=== PATIENT | female | born 1950 | race Caucasian/White ===

== ENCOUNTER 2017-08-03 22:36 | Emergency (ER) | payer MEDICARE ==
--- NOTE | 2017-08-03 23:08 | EDM.PDOC ---
ED HPI GENERAL MEDICAL PROBLEM - General Chief Complaint: Lower Extremity Injury/Pain Stated Complaint: HIP PAIN VIA NORTH Time Seen by Provider: 08/03/17 23:01 Source of Information: Reports: Patient, RN Notes Reviewed History Limitations: Reports: No Limitations - History of Present Illness INITIAL COMMENTS - FREE TEXT/NARRATIVE: 66-year-old female presents to the emergency department today complaint of right leg pain, she recently had hip replacement 2-1/2 weeks ago was doing well at home doing well with rehabilitation sudden onset of pain that shoots from her hip into her right knee cannot bear weight EMS services were called she received 50 g of fentanyl in route she is pain-free at this time as long as there is no movement - Related Data Allergies Allergy/AdvReac Type Severity Reaction Status Date / Time Penicillins Allergy Rash Verified 03/20/16 06:58 Home Meds: Home Meds Cholestyramine (With Sugar) [Questran Powder] 4 gm PO DAILY 03/18/16 [History] Gabapentin [Neurontin] 300 mg PO QID 03/18/16 [History] Mesalamine [Apriso] 4 cap PO DAILY 03/18/16 [History] Multivitamin [Multiple Vitamins] 1 tab PO DAILY 03/18/16 [History] Phenytoin Sodium Extended [Dilantin] 200 mg PO DAILY 03/18/16 [History] Phenytoin [Dilantin] 50 mg CHEW DAILY 03/18/16 [History] Sodium Chloride [[place]] 0.1 ml DIMITRI ASDIRECTED PRN 03/18/16 [History] Past Medical History HEENT History: Reports: Allergic Rhinitis, Impaired Vision Gastrointestinal History: Reports: Cholelithiasis, Other (See Below) Other Gastrointestinal History: ulcerative colitis Genitourinary History: Reports: UTI, Recurrent 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: , 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 Neurological History: Reports: Seizure - Infectious Disease History Infectious Disease History: Reports: Chicken Pox, Measles, Mumps - Past Surgical History Head Surgeries/Procedures: Reports: None Neurological Surgical History: Reports: None Dermatological Surgical History: Reports: Other (See Below) Social & Family History - Family History Family Medical History: Noncontributory - Tobacco Use Smoking Status *Q: Never Smoker Used Tobacco, but Quit: Yes Month Tobacco Last Used: 08/1995 Second Hand Smoke Exposure: No - Recreational Drug Use Recreational Drug Use: No Review of Systems - Review of Systems Review Of Systems: See Below Respiratory: Reports: No Symptoms Cardiovascular: Reports: No Symptoms Musculoskeletal: Reports: Leg Pain, Joint Pain ED EXAM, GENERAL - Physical Exam Exam: See Below Free Text/Narrative:: Examination of the right leg pedal pulse is +2 there is no tenderness the ankle no tenderness at the knee point tenderness this note point tenderness at the hip however any movement of the right leg causes excruciating pain Exam Limited By: No Limitations General Appearance: Alert, Mild Distress Course - Vital Signs Last Recorded V/S: Last Vital Signs Temp 98.8 F 08/03/17 22:57 Pulse 74 08/03/17 22:57 Resp 16 08/03/17 22:57 BP 130/59 L 08/03/17 22:57 Pulse Ox 99 08/03/17 22:57 - Orders/Labs/Meds Orders: Active Orders 24 hr Category Date Time Status Hip Min 2V or 3V Rt [CR] Stat Exams 08/03/17 23:05 Taken Knee 3V Rt [CR] Stat Exams 08/03/17 23:05 Taken Labs: Laboratory Tests 08/04/17 08/04/17 Range/Units 00:20 00:20 WBC 6.7 (4.5-11.0) K/uL RBC 3.70 (3.30-5.50) M/uL Hgb 12.5 (12.0-15.0) g/dL Hct 38.3 (36.0-48.0) % MCV 104 H (80-98) fL MCH 34 H (27-31) pg MCHC 33 (32-36) % Plt Count 155 (150-400) K/uL Neut % (Auto) 49 (36-66) % Lymph % (Auto) 35 (24-44) % [place] % (Auto) 14 H (2-6) % Eos % (Auto) 2 (2-4) % Baso % (Auto) 0 (0-1) % Sodium 139 L (140-148) mmol/L Potassium 3.9 (3.6-5.2) mmol/L Chloride 101 (100-108) mmol/L Carbon Dioxide 30 (21-32) mmol/L Anion Gap 11.9 (5.0-14.0) mmol/L BUN 12 (7-18) mg/dL Creatinine 0.5 L (0.6-1.0) mg/dL Est Cr Clr Drug Dosing 106.41 mL/min Estimated GFR (MDRD) > 60 (>60) Glucose 96 (74-106) mg/dL Calcium 8.6 (8.5-10.1) mg/dL Total Bilirubin 0.3 (0.2-1.0) mg/dL AST 36 (15-37) U/L ALT 55 (12-78) U/L Alkaline Phosphatase 154 H (46-116) U/L C-Reactive Protein 0.09 (0.0-0.3) mg/dL Total Protein 7.7 (6.4-8.2) g/dL Albumin 3.6 (3.4-5.0) g/dL Globulin 4.1 H (2.3-3.5) g/dL Albumin/Globulin Ratio 0.9 L (1.2-2.2) Departure - Departure Time of Disposition: 01:19 Disposition: DC/Tfer to Acute Hospital 02 Condition: Good Clinical Impression: Right leg pain - Discharge Information Referrals: PCP,None [Primary Care Provider] - Forms: ED Department Discharge - My Orders Last 24 Hours: My Active Orders 08/03/17 23:05 Hip Min 2V or 3V Rt [CR] Stat Knee 3V Rt [CR] Stat - Assessment/Plan Last 24 Hours: My Active Orders 08/03/17 23:05 Hip Min 2V or 3V Rt [CR] Stat Knee 3V Rt [CR] Stat Plan: Assessment Acuity = acute Site and laterality = right leg pain status post right hip repair Etiology = unclear etiology Manifestations = none Location of injury = Home Lab values = CBC, CMP, CRP within normal limits Plan Called and discussed the case with orthopedics on-call at [facility] kindly accepted the patient in transport will be transported via EMS ground for further evaluation This note was dictated using [employer] voice recognition software please call with any questions on syntax or shiraz.
[2017-08-04 01:59] VITALS: BP 126/56
[2017-08-04] MEDS ORDERED: Acetaminophen/oxyCODONE 325-5 MG Tab PO ONE (02:03)
--- NOTE | 2017-08-04 09:31 | CR ---
Hip Min 2V or 3V Rt HISTORY: pain FINDINGS: There is internal fixation of an old healed right hip fracture. No loosening other complica tion can be seen. Old avulsion of the lesser trochanter is noted. No acute fracture or dislocation is identified. Bony structures are mildly osteopenic. IMPRESSION: Old healed right hip fracture with internal fixation. Mild osteopenia. No acute right hip abnormality is identified.
--- NOTE | 2017-08-04 09:33 | CR ---
Knee 3V Rt HISTORY: pain FINDINGS: No acute fracture or dislocation is identified. Structures are osteopenic. There is mild joint space narrowing medial compartment with small medial osteophytes. Soft tissues are unremarkable. I see no joint effusion. IMPRESSION: Mild degenerative changes. Osteopenia. No fracture or other acute right abnormality is identified.
== END 2017-08-04 02:36 ==
LOC: JP.ED 22:36
DX: M79.604 Pain in right leg (principal); Z98.890 Other specified postprocedural states; Z87.891 Personal history of nicotine dependence; Z79.899 Other long term (current) drug therapy; Z88.0 Allergy status to penicillin
CPT/HCPCS: 36415; 73502; 73562; 80053; 85025; 86140; 99285; A9270; 99282

== ENCOUNTER 2018-02-23 13:47 | Emergency (ER) | payer MEDICARE ==
--- NOTE | 2018-02-23 14:39 | EDM.PDOC ---
ED HPI GENERAL MEDICAL PROBLEM - General Chief Complaint: General Stated Complaint: VERY DIZZY NOT FUNCTION CORRECTLY Time Seen by Provider: 02/23/18 14:25 Source of Information: Reports: Patient, Family History Limitations: Reports: No Limitations - History of Present Illness INITIAL COMMENTS - FREE TEXT/NARRATIVE: 67-year-old female with chronic recurring anxiety, seizure disorders, and a recent fractured hip arrives very anxious, hyperventilating, paresthesias of the arms and legs and confused. She says she just feels "awful". Vitals are stable, O2 saturations 97-99%. She is very nonspecific about her symptoms, and keeps asking if it has anything to do with her broken hip. They are weaning her down off of Dilantin which she has been on chronically. Onset: Gradual Severity: Moderate Associated Symptoms: Reports: Confusion, Malaise, Shortness of Breath. Denies: Chest Pain, Nausea/Vomiting - Related Data Allergies Allergy/AdvReac Type Severity Reaction Status Date / Time Penicillins Allergy Rash Verified 02/23/18 14:05 Home Meds: Home Meds Cholestyramine (With Sugar) [Questran Powder] 4 gm PO BID 03/18/16 [History] Gabapentin [Neurontin] 600 mg PO TID 03/18/16 [History] Mesalamine [Apriso] 4 cap PO DAILY 03/18/16 [History] Multivitamin [Multiple Vitamins] 1 tab PO DAILY 03/18/16 [History] Phenytoin [Dilantin] 100 mg PO DAILY 03/18/16 [History] Sodium Chloride [[place]] 0.1 ml DIMITRI ASDIRECTED PRN 03/18/16 [History] Past Medical History HEENT History: Reports: Allergic Rhinitis, Impaired Vision Gastrointestinal History: Reports: Cholelithiasis, Other (See Below) Other Gastrointestinal History: ulcerative colitis Genitourinary History: Reports: UTI, Recurrent 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: , 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 Musculoskeletal History: Reports: Fracture Neurological History: Reports: Seizure - Infectious Disease History Infectious Disease History: Reports: Chicken Pox, Measles - Past Surgical History Head Surgeries/Procedures: Reports: None Neurological Surgical History: Reports: None Musculoskeletal Surgical History: Reports: Other (See Below) Other Musculoskeletal Surgeries/Procedures:: right hip pinning Dermatological Surgical History: Reports: Other (See Below) Social & Family History - Family History Family Medical History: Noncontributory - Tobacco Use Smoking Status *Q: Former Smoker Years of Tobacco use: 10 Packs/Tins Daily: 0.5 Used Tobacco, but Quit: Yes Month/Year Tobacco Last Used: 1977 - Caffeine Use Caffeine Use: Reports: Coffee - Recreational Drug Use Recreational Drug Use: No ED ROS GENERAL - Review of Systems Review Of Systems: See Below Constitutional: Reports: Malaise. Denies: Fever, Chills Respiratory: Reports: Shortness of Breath. Denies: Cough Cardiovascular: Denies: Chest Pain GI/Abdominal: Denies: Abdominal Pain, Nausea, Vomiting Skin: Reports: No Symptoms Neurological: Reports: Confusion, Dizziness, Weakness Psychiatric: Reports: Anxiety, Confusion ED EXAM, GENERAL - Physical Exam Exam: See Below Exam Limited By: No Limitations General Appearance: Alert, No Apparent Distress, Anxious (Patient is extremely anxious) Eye Exam: Bilateral Eye: PERRL Neck: Supple Respiratory/Chest: No Respiratory Distress, Lungs Clear Cardiovascular: Regular Rate, Rhythm. No: Extra Beats GI/Abdominal: Non-Tender Extremities: Normal Inspection. No: Pedal Edema Neurological: Alert, No Motor/Sensory Deficits, Inattentive, Confused, Disoriented Psychiatric: Anxious Skin Exam: Warm, Dry Course - Vital Signs Last Recorded V/S: Last Vital Signs Temp 98.2 F 02/23/18 14:25 Pulse 77 02/23/18 15:10 Resp 10 L 02/23/18 15:10 BP 140/72 02/23/18 15:10 Pulse Ox 98 02/23/18 15:10 - Orders/Labs/Meds Labs: Laboratory Tests 02/23/18 02/23/18 Range/Units 14:26 14:26 WBC 6.1 (4.5-11.0) K/uL RBC 3.25 L (3.30-5.50) M/uL Hgb 11.5 L (12.0-15.0) g/dL Hct 34.8 L (36.0-48.0) % MCV 107 H (80-98) fL MCH 35 H (27-31) pg MCHC 33 (32-36) % Plt Count 128 L (150-400) K/uL Neut % (Auto) 39 (36-66) % Lymph % (Auto) 42 (24-44) % [place] % (Auto) 16 H (2-6) % Eos % (Auto) 3 (2-4) % Baso % (Auto) 0 (0-1) % Sodium 136 L (140-148) mmol/L Potassium 3.5 L (3.6-5.2) mmol/L Chloride 101 (100-108) mmol/L Carbon Dioxide 27 (21-32) mmol/L Anion Gap 11.5 (5.0-14.0) mmol/L BUN 10 (7-18) mg/dL Creatinine 0.6 (0.6-1.0) mg/dL Est Cr Clr Drug Dosing TNP Estimated GFR (MDRD) > 60 (>60) Glucose 79 (74-106) mg/dL Calcium 8.4 L (8.5-10.1) mg/dL Total Bilirubin 0.3 (0.2-1.0) mg/dL AST 37 (15-37) U/L ALT 53 (12-78) U/L Alkaline Phosphatase 64 (46-116) U/L Total Protein 7.1 (6.4-8.2) g/dL Albumin 3.3 L (3.4-5.0) g/dL Globulin 3.8 H (2.3-3.5) g/dL Albumin/Globulin Ratio 0.9 L (1.2-2.2) - Re-Assessments/Exams Free Text/Narrative Re-Assessment/Exam: 02/23/18 14:37 CBC and CMP were obtained. Discussed her condition with her live in boyfriend who says she's been doing this off and on for years. When she gets anxious about something she gets confused and agitated, will empty her purse or her take her shoes off and then not remember doing it etc. This looks similar. Patient can just not give me any specific symptoms other than "I feel awful." 02/23/18 15:20 Over the course of the ER stay and she settled down and felt better. Labs were reassuring. She is going to try to resume her regular dose of Dilantin for the next couple of nights to see if she feels better. She will then have to discuss with her primary if she can tolerate weaning off the Dilantin. Departure - Departure Time of Disposition: 15:46 Disposition: Home, Self-Care 01 Condition: Good Clinical Impression: Acute hyperventilation syndrome - Discharge Information Instructions: Hyperventilation Referrals: PCP,None [Primary Care Provider] - Forms: ED Department Discharge Care Plan Goals: Consider resuming your regular dose of Dilantin for the next few nights to see if you improve. Discuss treatment options with your new provider in the next 5- 10 days if possible. Return anytime if worsening or concerns. Consider bag rebreathing if he started to hyperventilate and developed numbness.
[2018-02-23 15:11] VITALS: BP 140/72
== END 2018-02-23 15:46 | disposition home or self-care (01) ==
LOC: JP.ED 13:47
DX: F45.8 Other somatoform disorders (principal); F41.9 Anxiety disorder, unspecified; G40.909 Epilepsy, unspecified, not intractable, without status epilepticus; Z87.891 Personal history of nicotine dependence; Z88.0 Allergy status to penicillin; Z79.899 Other long term (current) drug therapy
CPT/HCPCS: 36415; 80053; 85025; 99284

== ENCOUNTER 2019-01-20 08:03 | Day surgery (SDC) | payer MEDICAID, MEDICARE ==
[2019-01-20] MEDS ORDERED: Lactated Ringers 1,000 ML IV SCH (08:45)
[2019-01-20] MEDS ORDERED: Propofol 200 MG/20 ML SDV ONE ×2 (08:58→10:04)
[2019-01-20] MEDS ORDERED: fentaNYL 100 MCG/2 ML SDV ONE (08:58)
[2019-01-20 11:43] VITALS: BP 125/71
--- NOTE | 2019-01-21 08:33 | OR ---
DATE OF PROCEDURE: 01/20/2019 PREOPERATIVE DIAGNOSIS: Chronic diarrhea, possible ulcerative colitis. POSTOPERATIVE DIAGNOSES: Chronic diarrhea, possible ulcerative colitis. Diverticulosis. PROCEDURE: Colonoscopy to the cecum with random colonic biopsies. SURGEON: Dejon Clark MD ANESTHESIA: IV anesthesia with monitored anesthesia care. INDICATION: This 68-year-old white female is referred for a colonoscopy because of diarrhea, which she says is getting worse. She has had this for a long time. She has been told, she thinks, that she has ulcerative colitis. I counseled her for a colonoscopy with possible biopsy and/or polypectomy, including risks and alternatives, and she gave her informed consent to proceed. DESCRIPTION OF PROCEDURE: The patient was placed in the left lateral decubitus position. IV anesthesia was administered by the Anesthesia Service. Time-out was held. A rectal exam was performed, which was unremarkable. The flexible video Olympus colonoscope was introduced through her anus, up her rectum and out her colon, all way to the cecum. En route, in the left and sigmoid colon areas, we saw several diverticula. There was no bleeding or inflammation associated with them. Once the cecum was reached, the scope was slowly withdrawn, examining the mucosa throughout. No additional mucosal abnormalities were noted. We did not see any obvious evidence of colitis. We did obtain random colonic biopsies throughout the entire colon. The scope was retroflexed in the rectum with the distal rectum appearing unremarkable. The scope was straightened and removed. She tolerated the procedure well. Dejon Clark MD /[id number]
== END 2019-01-20 11:40 | disposition home or self-care (01) ==
LOC: JP.SDS 08:03
PROVIDERS: ATTEND Surgery
DX: K52.9 Noninfective gastroenteritis and colitis, unspecified (principal); K57.30 Diverticulosis of large intestine without perforation or abscess without bleeding; K74.60 Unspecified cirrhosis of liver; E78.5 Hyperlipidemia, unspecified; Z88.0 Allergy status to penicillin
CPT/HCPCS: 45380; J2704; J3010; J7120; 88305

== ENCOUNTER 2019-03-02 05:06 | Emergency (ER) | payer MEDICAID ==
--- NOTE | 2019-03-02 05:23 | EDM.PDOC ---
<Alex Calderón - Last Filed: 03/02/19 06:40> ED HPI GENERAL MEDICAL PROBLEM - General Chief Complaint: Neurological Problem Stated Complaint: MEDICAL VIA NORTH Time Seen by Provider: 03/02/19 05:10 Source of Information: Reports: Patient, EMS History Limitations: Reports: Altered Mental Status - History of Present Illness INITIAL COMMENTS - FREE TEXT/NARRATIVE: 68-year-old female with a chronic seizure history, anxiety disorder presents after having several seizures. She was witnessed having generalized seizure activity at home, EMS was called and on arrival an IV was started and she was given 5 mg of IV Versed. The seizure stopped, but in route to the hospital a second generalized seizure started and she was given another 2.5 mg of IV Versed. On arrival to the emergency room she was sedated but not seizing. She was becoming more awake and was responding to questions. She seemed to be focusing of the right, look to have some left facial droop. She denied any pain , headache, recent illness, nausea or vomiting or shortness of breath. No recent trauma. Onset: Sudden Duration: Hour(s): (Within the last hour) Associated Symptoms: Reports: Confusion. Denies: Chest Pain, Cough, Fever/ Chills, Headaches, Nausea/Vomiting, Shortness of Breath - Related Data Allergies Allergy/AdvReac Type Severity Reaction Status Date / Time Penicillins Allergy Rash Verified 01/20/19 08:22 Home Meds: Home Meds Cholestyramine (With Sugar) [Questran Powder] 4 gm PO BID PRN 03/18/16 [History] Gabapentin [Neurontin] 600 mg PO TID 03/18/16 [History] Mesalamine [Apriso] 4 cap PO DAILY 03/18/16 [History] Multivitamin [Multiple Vitamins] 1 tab PO DAILY 03/18/16 [History] Sodium Chloride [[place]] 0.1 ml DIMITRI ASDIRECTED PRN 03/18/16 [History] Alendronate Sodium [Fosamax] 70 mg PO ASDIRECTED 03/02/19 [History] Melatonin 5 mg PO BEDTIME 03/02/19 [History] Phenytoin Sodium Extended [Dilantin] 2 cap PO BEDTIME 03/02/19 [History] Past Medical History HEENT History: Reports: Allergic Rhinitis, Impaired Vision, Other (See Below) Other HEENT History: wears glasses Gastrointestinal History: Reports: Cholelithiasis, Other (See Below) Other Gastrointestinal History: ulcerative colitis Genitourinary History: Reports: UTI, Recurrent 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: , 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 Musculoskeletal History: Reports: Fracture Neurological History: Reports: Seizure - Infectious Disease History Infectious Disease History: Reports: Chicken Pox, Measles, Mumps, Rubella, Shingles - Past Surgical History GI Surgical History: Reports: Cholecystectomy, Colonoscopy Neurological Surgical History: Reports: None Musculoskeletal Surgical History: Reports: Other (See Below) Other Musculoskeletal Surgeries/Procedures:: right hip pinning Social & Family History - Family History Family Medical History: Noncontributory - Caffeine Use Caffeine Use: Reports: Coffee ED ROS GENERAL - Review of Systems Review Of Systems: See Below Constitutional: Denies: Fever, Chills HEENT: Denies: Vision Change Respiratory: Denies: Shortness of Breath Cardiovascular: Denies: Chest Pain GI/Abdominal: Denies: Nausea, Vomiting Skin: Reports: No Symptoms Neurological: Denies: Headache Psychiatric: Reports: Anxiety ED EXAM, GENERAL - Physical Exam Exam: See Below Exam Limited By: Physical Impairment (Patient is still postictal but opens eyes to command and will try to answer questions.) General Appearance: Lethargic Eye Exam: Bilateral Eye: Normal Inspection (Other than seemingly persistent gaze to the right), PERRL Throat/Mouth: Other (Some apparent weakness to the left perioral area) Head: Atraumatic Respiratory/Chest: No Respiratory Distress, Lungs Clear Cardiovascular: Regular Rate, Rhythm. No: Extra Beats GI/Abdominal: Soft, Non-Tender Extremities: No Pedal Edema Neurological: Disoriented, Slow to Respond, Other (Patient cannot move the left arm, grasp with the left hand, or dorsi flex or plantar flex the left foot) Psychiatric: Flat Affect Skin Exam: Warm, Dry Course - Vital Signs Last Recorded V/S: Last Vital Signs Temp 36.6 C 03/02/19 05:13 Pulse 72 03/02/19 08:19 Resp 16 03/02/19 08:19 BP 131/71 03/02/19 08:19 Pulse Ox 98 03/02/19 08:19 - Orders/Labs/Meds Labs: Laboratory Tests 03/02/19 03/02/19 03/02/19 Range/Units 05:25 05:25 05:25 WBC 4.2 L (4.5-11.0) K/uL RBC 3.43 (3.30-5.50) M/uL Hgb 12.4 (12.0-15.0) g/dL Hct 35.5 L (36.0-48.0) % MCV 104 H (80-98) fL MCH 36 H (27-31) pg MCHC 35 (32-36) % Plt Count 141 L (150-400) K/uL Neut % (Auto) 54 (36-66) % Lymph % (Auto) 31 (24-44) % [place] % (Auto) 14 H (2-6) % Eos % (Auto) 1 L (2-4) % Baso % (Auto) 1 (0-1) % Sodium 138 L (140-148) mmol/L Potassium 4.1 (3.6-5.2) mmol/L Chloride 103 (100-108) mmol/L Carbon Dioxide 24 (21-32) mmol/L Anion Gap 15.1 H (5.0-14.0) mmol/L BUN 11 (7-18) mg/dL Creatinine 0.8 (0.6-1.0) mg/dL Est Cr Clr Drug Dosing TNP Estimated GFR (MDRD) > 60 (>60) Glucose 103 (74-106) mg/dL Calcium 8.5 (8.5-10.1) mg/dL Total Bilirubin 0.3 (0.2-1.0) mg/dL AST 77 H D (15-37) U/L ALT 112 H (12-78) U/L Alkaline Phosphatase 70 (46-116) U/L Troponin I < 0.017 (0.000-0.056) ng/mL Total Protein 7.2 (6.4-8.2) g/dL Albumin 3.6 (3.4-5.0) g/dL Globulin 3.6 H (2.3-3.5) g/dL Albumin/Globulin Ratio 1.0 L (1.2-2.2) Urine Color Urine Appearance Urine pH (4.5-8.0) Ur Specific [place] (1.008-1.030) Urine Protein (NEGATIVE) mg/dL Urine Glucose (UA) (NEGATIVE) mg/dL Urine Ketones (NEGATIVE) mg/dL Urine Occult Blood (NEGATIVE) Urine Nitrite (NEGATIVE) Urine Bilirubin (NEGATIVE) Urine Urobilinogen (NORMAL) mg/dL Ur Leukocyte Esterase (NEGATIVE) Urine RBC (0-5) Urine WBC (0-5) Ur Epithelial Cells Amorphous Sediment Urine Bacteria Urine Mucus Phenytoin 7.4 L (10.0-20.0) ug/mL 03/02/19 Range/Units 05:47 WBC (4.5-11.0) K/uL RBC (3.30-5.50) M/uL Hgb (12.0-15.0) g/dL Hct (36.0-48.0) % MCV (80-98) fL MCH (27-31) pg MCHC (32-36) % Plt Count (150-400) K/uL Neut % (Auto) (36-66) % Lymph % (Auto) (24-44) % [place] % (Auto) (2-6) % Eos % (Auto) (2-4) % Baso % (Auto) (0-1) % Sodium (140-148) mmol/L Potassium (3.6-5.2) mmol/L Chloride (100-108) mmol/L Carbon Dioxide (21-32) mmol/L Anion Gap (5.0-14.0) mmol/L BUN (7-18) mg/dL Creatinine (0.6-1.0) mg/dL Est Cr Clr Drug Dosing Estimated GFR (MDRD) (>60) Glucose (74-106) mg/dL Calcium (8.5-10.1) mg/dL Total Bilirubin (0.2-1.0) mg/dL AST (15-37) U/L ALT (12-78) U/L Alkaline Phosphatase (46-116) U/L Troponin I (0.000-0.056) ng/mL Total Protein (6.4-8.2) g/dL Albumin (3.4-5.0) g/dL Globulin (2.3-3.5) g/dL Albumin/Globulin Ratio (1.2-2.2) Urine Color Yellow Urine Appearance Clear Urine pH 7.0 (4.5-8.0) Ur Specific [place] 1.010 (1.008-1.030) Urine Protein Negative (NEGATIVE) mg/dL Urine Glucose (UA) Normal (NEGATIVE) mg/dL Urine Ketones Negative (NEGATIVE) mg/dL Urine Occult Blood Trace (NEGATIVE) Urine Nitrite Negative (NEGATIVE) Urine Bilirubin Negative (NEGATIVE) Urine Urobilinogen Normal (NORMAL) mg/dL Ur Leukocyte Esterase Negative (NEGATIVE) Urine RBC 0-5 (0-5) Urine WBC 0-5 (0-5) Ur Epithelial Cells Few Amorphous Sediment Few Urine Bacteria Few Urine Mucus Not seen Phenytoin (10.0-20.0) ug/mL Meds: Medications Discontinued Medications Generic Name Dose Route Start Last Admin Trade Name Ta PRN Reason Stop Dose Admin Phenytoin Sodium 200 mg 03/02/19 06:01 03/02/19 06:10 Phenytoin IVPUSH 03/02/19 06:02 200 mg ONETIME ONE Administration - Re-Assessments/Exams Free Text/Narrative Re-Assessment/Exam: 03/02/19 05:23 Patient was sent back to CT for a noncontrast head CT. CBC, CMP, Dilantin level were obtained and a Han catheter placed and a UA collected. 03/02/19 06:40 Phenytoin level returned subtherapeutic, 200 mg of IV phenytoin was given. CT the head was negative. The remainder of her labs were reassuring, and she rapidly started improving. Within 30 minutes she was sitting up and visiting normally, facial muscles were symmetric and she regained most of the coordination of her left arm. She was able to move her left foot but it was still weak compared to the right leg. 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 She will be given her oral dose of gabapentin. Departure - Departure Disposition: Home, Self-Care 01 Clinical Impression: Seizure, Subtherapeutic phenytoin level - Discharge Information Instructions: Seizure, Adult, [id number] Referrals: PCP,None [Primary Care Provider] - Forms: ED Department Discharge Additional Instructions: See your doctor for recheck as soon as possible. Return here as needed. <James Napoles - Last Filed: 03/02/19 09:30> Course - Radiology Interpretation Free Text/Narrative:: Head CT-nothing acute - Re-Assessments/Exams Free Text/Narrative Re-Assessment/Exam: 03/02/19 07:19 @ 0715h I went to introduce myself to the patient and she informed me that she was fine and that she had taken her morning gapapentin with breakfast at 0630h this morning "my time" which she clarified as Walker Time. When I told her she had been in the ER since 0500h today and that she had not yet had breakfast she was adamant that I was wrong. She does seem to be using both sides fairly equally now. 03/02/19 07:22 Free Text/Narrative Re-Assessment/Exam: 03/02/19 08:47 Ambulated independently without assistance. Is slowly clearing mentally. Still partially disoriented. Doing even better on her orientation. Will discharge with clinic follow up. 03/02/19 09:28 Departure - Departure Time of Disposition: 09:35 Condition: Fair - Discharge Information *PRESCRIPTION DRUG MONITORING PROGRAM REVIEWED*: No *COPY OF PRESCRIPTION DRUG MONITORING REPORT IN PATIENT RATNA: No
--- NOTE | 2019-03-02 05:48 | CRLCT ---
INDICATION: Seizure and left-sided weakness. TECHNIQUE: CT head without contrast. COMPARISON: None. FINDINGS: CSF spaces: Within normal limits for age. Brain parenchyma: Mild cerebral atrophy with low density in the deep white matter. No intracranial bleed or mass effect. Owens-white differentiation is distinct. Skull base and calvarium: Trace mucosal thickening paranasal sinuses. The visualized orbits are grossly unremarkable. No skull fractures. IMPRESSION: 1. No intracranial bleed or mass effect. 2. Cerebral atrophy with mild low-density in the deep white matter, likely microangiopathy. Please note that all CT scans at this facility use dose modulation, iterative reconstruction, and/or weight-based dosing when appropriate to reduce radiation dose to as low as reasonably achievable. Dictated by Mo Bourgeois MD @ Mar 02 2019 5:42AM Signed by Dr. Mo Bourgeois @ Mar 02 2019 5:46AM
[2019-03-02] MEDS ORDERED: Phenytoin 250 MG/5 ML SDV IVPUSH ONE (06:01)
[2019-03-02 08:59] VITALS: PULSE 72
[2019-03-02 10:04] VITALS: BP 115/59
== END 2019-03-02 10:24 | disposition home or self-care (01) ==
LOC: JP.ED 05:06
DX: R56.9 Unspecified convulsions (principal); R89.2 Abnormal level of other drugs, medicaments and biological substances in specimens from other organs, systems and tissues; Z88.1 Allergy status to other antibiotic agents; Z79.899 Other long term (current) drug therapy
CPT/HCPCS: 36415; 51702; 70450; 80053; 80185; 81001; 84484; 85025; 96374; 99285; J1165

== ENCOUNTER 2019-03-16 10:22 | Emergency (ER) | payer MEDICAID, MEDICARE ==
[2019-03-16] MEDS ORDERED: Metoprolol Succinate 50 MG Tab.ER PO ONE (13:56)
[2019-03-16 14:27] VITALS: PULSE 61
--- NOTE | 2019-03-16 15:10 | CT ---
Head wo Cont CLINICAL HISTORY: Disequilibrium, tremors COMPARISON: 03/02/2019 TECHNIQUE: Transverse scans were obtained from the base of the skull through the vertex without IV contrast on a multislice, multidetector CT scanner. Auto dosage reduction and iterative reconstruction techniques employed. FINDINGS: No focal abnormal parenchymal density is seen. There is no mass effect, hemorrhage, or extraaxial collection. The basal cisterns and sulci over the convexities are moderately prominent. The ventricles are normal for age. IMPRESSION: Moderate atrophic change No focal lesion mass effect or hemorrhage
[2019-03-16 15:17] VITALS: BP 142/76
--- NOTE | 2019-03-16 15:59 | EDM.PDOC ---
ED HPI GENERAL MEDICAL PROBLEM - General Chief Complaint: General Stated Complaint: POSSIBLE ALLERGIC REACTION Time Seen by Provider: 03/16/19 11:18 Source of Information: Reports: Patient History Limitations: Reports: No Limitations - History of Present Illness INITIAL COMMENTS - FREE TEXT/NARRATIVE: This lady arrived by EMS from [facility]. I received a call from her provider Stephanie Harrell who said that this patient has a history of seizures and takes Dilantin. Today she sort of feels out of it and has noticed a tremor. She says it's hard to focus and get around. Her vision is okay but she feels off balance. She thinks her blood pressure is higher than normal. She denies any kind of weakness and there are no paresthesias. - Related Data Allergies Allergy/AdvReac Type Severity Reaction Status Date / Time Penicillins Allergy Rash Verified 01/20/19 08:22 Home Meds: Home Meds Cholestyramine (With Sugar) [Questran Powder] 4 gm PO BID PRN 03/18/16 [History] Gabapentin [Neurontin] 600 mg PO TID 03/18/16 [History] Mesalamine [Apriso] 4 cap PO DAILY 03/18/16 [History] Multivitamin [Multiple Vitamins] 1 tab PO DAILY 03/18/16 [History] Sodium Chloride [[place]] 0.1 ml DIMITRI ASDIRECTED PRN 03/18/16 [History] Alendronate Sodium [Fosamax] 70 mg PO ASDIRECTED 03/02/19 [History] Melatonin 5 mg PO BEDTIME 03/02/19 [History] Phenytoin Sodium Extended [Dilantin] 2 cap PO BEDTIME 03/02/19 [History] Past Medical History HEENT History: Reports: Allergic Rhinitis, Impaired Vision, Other (See Below) Other HEENT History: wears glasses Gastrointestinal History: Reports: Cholelithiasis, Other (See Below) Other Gastrointestinal History: ulcerative colitis Genitourinary History: Reports: UTI, Recurrent 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 tremor of hands and face Hematologic History: Reports: Other (See Below) Other Hematologic History: macrocytosis - Infectious Disease History Infectious Disease History: Reports: Chicken Pox, Measles, Mumps - Past Surgical History GI Surgical History: Reports: Cholecystectomy, Colonoscopy Neurological Surgical History: Reports: None Musculoskeletal Surgical History: Reports: Other (See Below) Other Musculoskeletal Surgeries/Procedures:: right hip pinning Dermatological Surgical History: Reports: Other (See Below) Social & Family History - Family History Family Medical History: Noncontributory - Tobacco Use Smoking Status *Q: Never Smoker - Caffeine Use Caffeine Use: Reports: Coffee ED ROS GENERAL - Review of Systems Review Of Systems: See Below Constitutional: Reports: No Symptoms HEENT: Reports: No Symptoms Respiratory: Reports: No Symptoms Cardiovascular: Reports: No Symptoms Endocrine: Reports: No Symptoms GI/Abdominal: Reports: No Symptoms : Reports: No Symptoms Musculoskeletal: Reports: No Symptoms Skin: Reports: No Symptoms Neurological: Reports: Tremors, Difficulty Walking Psychiatric: Reports: No Symptoms Hematologic/Lymphatic: Reports: No Symptoms Immunologic: Reports: No Symptoms ED EXAM, GENERAL - Physical Exam Exam: See Below Exam Limited By: No Limitations General Appearance: Alert, WD/WN, Other (She does have an obvious tremor to the arms. It seems to be an intention tremor.) Eye Exam: Bilateral Eye: EOMI, PERRL Ears: Normal External Exam Nose: Normal Inspection Throat/Mouth: Normal Oropharynx Head: Atraumatic Neck: Normal Inspection Respiratory/Chest: Lungs Clear Cardiovascular: Regular Rate, Rhythm, No Murmur GI/Abdominal: Non-Tender Extremities: Normal Inspection Neurological: Alert, Oriented, CN II-XII Intact, Normal Cognition, No Motor/ Sensory Deficits, Other (She seems to have a fairly coarse tremor which seems to be related to movements. Romberg testing was negative for any disequilibrium but I think maybe she may have some difficulties with proprioception of the legs ). No: Normal Reflexes (Normal biceps and right patella reflexes. I don't get a reflex to the left patella. Achilles reflexes appear to be normal.) Psychiatric: Normal Affect Skin Exam: Warm Course - Vital Signs Last Recorded V/S: Last Vital Signs Temp 35.9 C 03/16/19 10:35 Pulse 61 03/16/19 14:25 Resp 16 03/16/19 10:35 BP 142/76 H 03/16/19 15:00 Pulse Ox 99 03/16/19 11:59 - Orders/Labs/Meds Orders: Active Orders 24 hr Category Date Time Status EKG Documentation Completion [RC] ASDIRECTED Care 03/16/19 11:20 Active EKG 12 Lead [EK] Urgent Ther 03/16/19 11:20 Ordered Labs: Laboratory Tests 03/16/19 03/16/19 03/16/19 Range/Units 11:19 11:35 11:35 WBC 6.1 (4.5-11.0) K/uL RBC 3.49 (3.30-5.50) M/uL Hgb 12.4 (12.0-15.0) g/dL Hct 37.5 (36.0-48.0) % MCV 107 H (80-98) fL MCH 36 H (27-31) pg MCHC 33 (32-36) % Plt Count 148 L (150-400) K/uL Neut % (Auto) 37 (36-66) % Lymph % (Auto) 47 H (24-44) % [place] % (Auto) 14 H (2-6) % Eos % (Auto) 2 (2-4) % Baso % (Auto) 0 (0-1) % Sodium 139 L (140-148) mmol/L Potassium 4.9 (3.6-5.2) mmol/L Chloride 103 (100-108) mmol/L Carbon Dioxide 29 (21-32) mmol/L Anion Gap 11.9 (5.0-14.0) mmol/L BUN 10 (7-18) mg/dL Creatinine 0.6 (0.6-1.0) mg/dL Est Cr Clr Drug Dosing 91.18 mL/min Estimated GFR (MDRD) > 60 (>60) Glucose 93 (74-106) mg/dL Calcium 8.8 (8.5-10.1) mg/dL Total Bilirubin 0.3 (0.2-1.0) mg/dL AST 66 H (15-37) U/L ALT 95 H (12-78) U/L Alkaline Phosphatase 71 (46-116) U/L Total Protein 7.1 (6.4-8.2) g/dL Albumin 3.5 (3.4-5.0) g/dL Globulin 3.6 H (2.3-3.5) g/dL Albumin/Globulin Ratio 1.0 L (1.2-2.2) Phenytoin 14.7 (10.0-20.0) ug/mL Meds: Medications Discontinued Medications Generic Name Dose Route Start Last Admin Trade Name Freq PRN Reason Stop Dose Admin Metoprolol Succinate 50 mg 03/16/19 13:56 03/16/19 14:25 Toprol Xl PO 03/16/19 13:57 50 mg ONETIME ONE Administration - Radiology Interpretation Free Text/Narrative:: CT of the head showed no acute abnormalities - Re-Assessments/Exams Free Text/Narrative Re-Assessment/Exam: 03/16/19 16:51 After the exam and lab work I had the nurses get her up and walk around. They felt like she was kind of on the shaky side. I went in and examined her again and noted her balance when standing and noted the loss of the patellar reflex. At that point I decided to go ahead and do a head CT on this lady. She later was wanting some orange juice because she said she hadn't had anything to eat all day long and that that kind of made her feel lightheaded. Because we are so busy it took a while for that to happen did order her a tray with sandwich and soup and so forth and we get her some extra orange juice but she did have to wait a while for that. This lady will in all probability need a brain MRI and a formal neurologic workup. Departure - Departure Time of Disposition: 15:57 Disposition: Home, Self-Care 01 Condition: Fair Clinical Impression: Tremor due to disorder of central nervous system - Discharge Information Instructions: Tremor Referrals: Stephanie Pearson PA [Primary Care Provider] - Forms: ED Department Discharge Additional Instructions: Plan to follow-up with your doctor within the next one or 2 days. You may need an MRI of the brain and a referral to a neurologist. - My Orders Last 24 Hours: My Active Orders 03/16/19 11:20 EKG Documentation Completion [RC] ASDIRECTED EKG 12 Lead [EK] Urgent - Assessment/Plan Last 24 Hours: My Active Orders 03/16/19 11:20 EKG Documentation Completion [RC] ASDIRECTED EKG 12 Lead [EK] Urgent
== END 2019-03-16 16:38 | disposition home or self-care (01) ==
LOC: JP.ED 10:22
DX: R25.1 Tremor, unspecified (principal); Z90.49 Acquired absence of other specified parts of digestive tract; Z79.899 Other long term (current) drug therapy; Z88.0 Allergy status to penicillin
CPT/HCPCS: 36415; 70450; 80053; 80185; 85025; 93005; 99284; A9270

== ENCOUNTER 2019-12-02 10:17 | Emergency (ER) | payer MEDICAID, MEDICARE ==
[2019-12-02 10:37] VITALS: BP 143/71; PULSE 68
--- NOTE | 2019-12-02 11:04 | EDM.PDOC ---
ED HPI GENERAL MEDICAL PROBLEM - General Chief Complaint: Abdominal Pain Stated Complaint: ABD PAIN Time Seen by Provider: 12/02/19 10:54 Source of Information: Reports: Patient, RN Notes Reviewed History Limitations: Reports: No Limitations - History of Present Illness INITIAL COMMENTS - FREE TEXT/NARRATIVE: 69-year-old female presents emergency department today with complaint of abdominal pain she does have a history of ulcerative colitis as well as primary biliary cholangitis, she states she has been having abdominal pain for the last 3 days it does wax and wane her bowel movements have been irregular there is no nausea vomiting no fevers she does follow with gastroenterology in [place] Lower Abdomen Pain Score (Numeric/FACES): 9 - Related Data Allergies Allergy/AdvReac Type Severity Reaction Status Date / Time Penicillins Allergy Rash Verified 12/02/19 10:37 Home Meds: Home Meds Cholestyramine (With Sugar) [Questran Powder] 4 gm PO BID PRN 03/18/16 [History] Gabapentin [Neurontin] 600 mg PO TID 03/18/16 [History] Mesalamine [Apriso] 4 cap PO DAILY 03/18/16 [History] Multivitamin [Multiple Vitamins] 1 tab PO DAILY 03/18/16 [History] Sodium Chloride [[place]] 0.1 ml DIMITRI ASDIRECTED PRN 03/18/16 [History] Melatonin 5 mg PO BEDTIME 03/02/19 [History] Phenytoin Sodium Extended [Dilantin] 2 cap PO BEDTIME 03/02/19 [History] Ammonium Lactate [Lac-Hydrin 12% Crm] 1 applic TOP BID 12/02/19 [History] Past Medical History HEENT History: Reports: Allergic Rhinitis, Impaired Vision, Other (See Below) Other HEENT History: wears glasses Gastrointestinal History: Reports: Cholelithiasis, Other (See Below) Other Gastrointestinal History: ulcerative colitis Genitourinary History: Reports: UTI, Recurrent 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 tremor of hands and face Hematologic History: Reports: Other (See Below) Other Hematologic History: macrocytosis - Infectious Disease History Infectious Disease History: Reports: C-Difficile, Measles - Past Surgical History GI Surgical History: Reports: Cholecystectomy, Colonoscopy Neurological Surgical History: Reports: None Musculoskeletal Surgical History: Reports: Other (See Below) Other Musculoskeletal Surgeries/Procedures:: right hip pinning Dermatological Surgical History: Reports: Other (See Below) Social & Family History - Family History Family Medical History: Noncontributory - Tobacco Use Smoking Status *Q: Former Smoker Used Tobacco, but Quit: Yes Month/Year Tobacco Last Used: 25 years ago - Caffeine Use Caffeine Use: Reports: Coffee - Recreational Drug Use Recreational Drug Use: No ED ROS GENERAL - Review of Systems Review Of Systems: See Below Constitutional: Denies: Fever, Chills HEENT: Reports: No Symptoms Respiratory: Reports: No Symptoms Cardiovascular: Reports: No Symptoms GI/Abdominal: Reports: Abdominal Pain, Constipation, Diarrhea, Flatus. Denies: Nausea : Reports: No Symptoms ED EXAM, GI/ABD - Physical Exam Exam: See Below Exam Limited By: No Limitations General Appearance: Alert, WD/WN, No Apparent Distress Respiratory/Chest: No Respiratory Distress, Lungs Clear, Normal Breath Sounds, No Accessory Muscle Use, Chest Non-Tender Cardiovascular: Regular Rate, Rhythm, No Murmur GI/Abdominal Exam: Soft, Non-Tender Course - Vital Signs Last Recorded V/S: Last Vital Signs Temp 98.6 F 12/02/19 10:33 Pulse 68 12/02/19 10:33 Resp 18 12/02/19 10:33 BP 143/71 H 12/02/19 10:33 Pulse Ox 99 12/02/19 10:33 - Orders/Labs/Meds Orders: Active Orders 24 hr Category Date Time Status Abdomen 1V Upright [CR] Urgent Exams 12/02/19 11:00 Taken Labs: Laboratory Tests 12/02/19 12/02/19 12/02/19 Range/Units 11:08 11:08 11:08 WBC 7.2 (4.5-11.0) K/uL RBC 3.67 (3.30-5.50) M/uL Hgb 12.9 (12.0-15.0) g/dL Hct 38.6 (36.0-48.0) % MCV 105 H (80-98) fL MCH 35 H (27-31) pg MCHC 33 (32-36) % Plt Count 153 (150-400) K/uL Neut % (Auto) 41 (36-66) % Lymph % (Auto) 43 (24-44) % [place] % (Auto) 14 H (2-6) % Eos % (Auto) 2 (2-4) % Baso % (Auto) 0 (0-1) % Sodium 137 L (140-148) mmol/L Potassium 5.0 (3.6-5.2) mmol/L Chloride 101 (100-108) mmol/L Carbon Dioxide 30 (21-32) mmol/L Anion Gap 11.0 (5.0-14.0) mmol/L BUN 12 (7-18) mg/dL Creatinine 0.6 (0.6-1.0) mg/dL Est Cr Clr Drug Dosing 87.43 mL/min Estimated GFR (MDRD) > 60 (>60) Glucose 90 (74-106) mg/dL Lactic Acid 1.1 (0.4-2.0) mmol/L Calcium 8.5 (8.5-10.1) mg/dL Total Bilirubin 0.4 (0.2-1.0) mg/dL AST 53 H (15-37) U/L ALT 74 (12-78) U/L Alkaline Phosphatase 84 (46-116) U/L Total Protein 7.4 (6.4-8.2) g/dL Albumin 3.8 (3.4-5.0) g/dL Globulin 3.6 H (2.3-3.5) g/dL Albumin/Globulin Ratio 1.1 L (1.2-2.2) Lipase 97 (73-393) U/L Urine Color (YELLOW) Urine Appearance (CLEAR) Urine pH (5.0-8.0) Ur Specific [place] (1.008-1.030) Urine Protein (NEGATIVE) mg/dL Urine Glucose (UA) (NEGATIVE) mg/dL Urine Ketones (NEGATIVE) mg/dL Urine Occult Blood (NEGATIVE) Urine Nitrite (NEGATIVE) Urine Bilirubin (NEGATIVE) Urine Urobilinogen (0.2-1.0) EU/dL Ur Leukocyte Esterase (NEGATIVE) Urine RBC (0-5) Urine WBC (0-5) Ur Epithelial Cells Amorphous Sediment Urine Bacteria Urine Mucus 12/02/19 Range/Units 11:18 WBC (4.5-11.0) K/uL RBC (3.30-5.50) M/uL Hgb (12.0-15.0) g/dL Hct (36.0-48.0) % MCV (80-98) fL MCH (27-31) pg MCHC (32-36) % Plt Count (150-400) K/uL Neut % (Auto) (36-66) % Lymph % (Auto) (24-44) % [place] % (Auto) (2-6) % Eos % (Auto) (2-4) % Baso % (Auto) (0-1) % Sodium (140-148) mmol/L Potassium (3.6-5.2) mmol/L Chloride (100-108) mmol/L Carbon Dioxide (21-32) mmol/L Anion Gap (5.0-14.0) mmol/L BUN (7-18) mg/dL Creatinine (0.6-1.0) mg/dL Est Cr Clr Drug Dosing mL/min Estimated GFR (MDRD) (>60) Glucose (74-106) mg/dL Lactic Acid (0.4-2.0) mmol/L Calcium (8.5-10.1) mg/dL Total Bilirubin (0.2-1.0) mg/dL AST (15-37) U/L ALT (12-78) U/L Alkaline Phosphatase (46-116) U/L Total Protein (6.4-8.2) g/dL Albumin (3.4-5.0) g/dL Globulin (2.3-3.5) g/dL Albumin/Globulin Ratio (1.2-2.2) Lipase (73-393) U/L Urine Color Yellow (YELLOW) Urine Appearance Clear (CLEAR) Urine pH 7.0 (5.0-8.0) Ur Specific [place] 1.020 (1.008-1.030) Urine Protein Negative (NEGATIVE) mg/dL Urine Glucose (UA) Negative (NEGATIVE) mg/dL Urine Ketones Negative (NEGATIVE) mg/dL Urine Occult Blood Trace-lysed H (NEGATIVE) Urine Nitrite Negative (NEGATIVE) Urine Bilirubin Negative (NEGATIVE) Urine Urobilinogen 0.2 (0.2-1.0) EU/dL Ur Leukocyte Esterase Negative (NEGATIVE) Urine RBC 0-5 (0-5) Urine WBC 0-5 (0-5) Ur Epithelial Cells Few Amorphous Sediment Not seen Urine Bacteria Rare Urine Mucus Not seen Departure - Departure Time of Disposition: 12:20 Disposition: Home, Self-Care 01 Condition: Fair Clinical Impression: Functional constipation - Discharge Information Instructions: Constipation, Adult Referrals: PCP,None [Primary Care Provider] - Forms: ED Department Discharge Additional Instructions: Try the colonoscopy prep with MiraLAX, please followup with your primary care provider in 3-5 days if not better, please call return to the emergency department with worsening of symptoms. Sepsis Event Note - Evaluation Sepsis Screening Result: No Definite Risk - Focused Exam Vital Signs: Vital Signs Temp Pulse Resp BP Pulse Ox 12/02/19 10:33 98.6 F 68 18 143/71 H 99 Date Exam was Performed: 12/02/19 Time Exam was Performed: 12:19 - My Orders Last 24 Hours: My Active Orders 12/02/19 11:00 Abdomen 1V Upright [CR] Urgent - Assessment/Plan Last 24 Hours: My Active Orders 12/02/19 11:00 Abdomen 1V Upright [CR] Urgent Plan: Assessment Acuity = acute Site and laterality = functional constipation Etiology = slow transit time Manifestations = abdominal pain Location of injury = Home Lab values = CBC, CMP, urinalysis unremarkable plain film the abdomen does show large amount of stool Plan Recommend colonoscopy prep with MiraLAX follow-up primary care 3 to 5 days if not better This note was dictated using [email or web address] voice recognition software please call with any questions on syntax or grammar.
--- NOTE | 2019-12-02 13:30 | CR ---
Abdomen 1V Upright CLINICAL HISTORY: Abdominal pain FINDINGS: No free air is seen. Small intestinal configuration is nonacute. There is gas and feces throughout the colon. Patient has a severe levorotoscoliosis IMPRESSION: Nonacute intestinal gas pattern Severe levorotoscoliosis
== END 2019-12-02 12:31 | disposition home or self-care (01) ==
LOC: JP.ED 10:17
DX: K59.04 Chronic idiopathic constipation (principal); Z88.0 Allergy status to penicillin; Z79.899 Other long term (current) drug therapy; R56.9 Unspecified convulsions; Z87.891 Personal history of nicotine dependence
CPT/HCPCS: 36415; 74018; 74018-26; 80053; 81001; 83605; 83690; 85025; 99283; 99284-25

== ENCOUNTER 2020-12-31 19:22 | Emergency (ER) | payer MEDICARE ==
[2020-12-31] MEDS ORDERED: Gabapentin 300 MG Cap PO ONE (19:56)
--- NOTE | 2020-12-31 20:50 | EDM.PDOC ---
ED HPI GENERAL MEDICAL PROBLEM - General Chief Complaint: Neurological Problem Stated Complaint: [facility] Time Seen by Provider: 12/31/20 19:30 Source of Information: Reports: Patient, EMS History Limitations: Reports: No Limitations - History of Present Illness INITIAL COMMENTS - FREE TEXT/NARRATIVE: 70-year-old female with a long history of seizure disorder, is on phenytoin and gabapentin. She had missed her evening dose of gabapentin tonight but otherwise was feeling fine, and then had a unexpected breakthrough seizure this evening where she hit her face on the floor. Her friend came in and found her sitting holding a rag to her face, very confused so he called the ambulance. She continued to improve in route, no medicine was given. On arrival she still felt a little "foggy", had a ecchymotic swollen upper lip and a little bit of bruising around the left eye but was otherwise neurologically normal. She wanted to go home if possible. Her last seizure was a year and a half ago. Onset: Sudden Duration: Hour(s): (2 hours ago) Location: Reports: Face. Denies: Neck, Chest, Abdomen Treatments ENROLLMENT MANAGEMENT COORDINATOR: Reports: See EMS Report - Related Data Allergies Allergy/AdvReac Type Severity Reaction Status Date / Time Penicillins Allergy Rash Verified 12/31/20 19:38 Home Meds: Home Meds Cholestyramine (With Sugar) [Questran Powder] 4 gm PO BID PRN 03/18/16 [History] Gabapentin [Neurontin] 600 mg PO TID 03/18/16 [History] Mesalamine [Apriso] 4 cap PO DAILY 03/18/16 [History] Multivitamin [Multiple Vitamins] 1 tab PO DAILY 03/18/16 [History] Sodium Chloride [[place]] 0.1 ml DIMITRI ASDIRECTED PRN 03/18/16 [History] Melatonin 5 mg PO BEDTIME 03/02/19 [History] Phenytoin Sodium Extended [Dilantin] 2 cap PO BEDTIME 03/02/19 [History] Ammonium Lactate [Lac-Hydrin 12% Crm] 1 applic TOP BID 12/02/19 [History] Past Medical History HEENT History: Reports: Allergic Rhinitis, Impaired Vision, Other (See Below) Other HEENT History: wears glasses Gastrointestinal History: Reports: Cholelithiasis, Other (See Below) Other Gastrointestinal History: ulcerative colitis Genitourinary History: Reports: UTI, Recurrent PAYMENT SPECIALIST History: Reports: , 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 tremor of hands and face Hematologic History: Reports: Other (See Below) Other Hematologic History: macrocytosis - Infectious Disease History Infectious Disease History: Reports: C-Difficile, Measles - Past Surgical History Head Surgeries/Procedures: Reports: None HEENT Surgical History: Reports: None GI Surgical History: Reports: Cholecystectomy, Colonoscopy Female Surgical History: Reports: None Neurological Surgical History: Reports: None Musculoskeletal Surgical History: Reports: Other (See Below) Other Musculoskeletal Surgeries/Procedures:: right hip pinning Dermatological Surgical History: Reports: Other (See Below) Social & Family History - Family History Family Medical History: No Pertinent Family History - Tobacco Use Tobacco Use Status *Q: Former Tobacco User Years of Tobacco use: 20 Used Tobacco, but Quit: Yes Month/Year Tobacco Last Used: 1979 - Caffeine Use Caffeine Use: Reports: Coffee Caffeine Use Comment: couple cups of coffee daily - Recreational Drug Use Recreational Drug Use: Yes ED ROS GENERAL - Review of Systems Review Of Systems: See Below Constitutional: Denies: Fever, Chills, Malaise HEENT: Denies: Vision Change Respiratory: Denies: Shortness of Breath Cardiovascular: Denies: Chest Pain GI/Abdominal: Denies: Nausea, Vomiting Skin: Reports: Bruising (Bruising around the lateral left eye, swollen upper lip) Neurological: Reports: Seizure, Other (She has amnesia of the event) Psychiatric: Reports: No Symptoms - Physical Exam Exam: See Below Exam Limited By: No Limitations General Appearance: Alert, No Apparent Distress Eye Exam: Left Eye: Other (Ecchymosis around the left lateral eye, EOMs intact without pain), Bilateral Eye: EOMI, PERRL Head Exam: Other (Swollen upper lip, bruising around the left eye but no other evidence of trauma) Neck: Supple, Non-Tender Respiratory/Chest: No Respiratory Distress, Lungs Clear Cardiovascular: Regular Rate, Rhythm. No: Tachycardia Neuro Exam (Abbreviated): Alert, Oriented, No Motor/Sensory Deficits Extremities: Normal Inspection Psychiatric: Normal Affect, Normal Mood Skin Exam: Warm, Dry, Other (Bruising on the face as mentioned above) Course - Vital Signs Last Recorded V/S: Last Vital Signs Temp 97.3 F 12/31/20 19:34 Pulse 64 12/31/20 20:42 Resp 16 12/31/20 19:34 BP 119/67 12/31/20 20:42 Pulse Ox 97 12/31/20 20:42 - Orders/Labs/Meds Labs: Laboratory Tests 12/31/20 12/31/20 Range/Units 20:05 20:05 WBC 4.6 (4.5-11.0) K/uL RBC 3.21 L (3.30-5.50) M/uL Hgb 11.5 L (12.0-15.0) g/dL Hct 34.0 L (36.0-48.0) % MCV 106 H (80-98) fL MCH 36 H (27-31) pg MCHC 34 (32-36) % Plt Count 124 L (150-400) K/uL Neut % (Auto) 27 L (36-66) % Lymph % (Auto) 54 H (24-44) % [place] % (Auto) 14 H (2-6) % Eos % (Auto) 5 H (2-4) % Baso % (Auto) 1 (0-1) % Sodium 132 L (140-148) mmol/L Potassium 3.9 (3.6-5.2) mmol/L Chloride 94 L (100-108) mmol/L Carbon Dioxide 26 (21-32) mmol/L Anion Gap 15.9 H (5.0-14.0) mmol/L BUN 14 (7-18) mg/dL Creatinine 0.6 (0.6-1.0) mg/dL Est Cr Clr Drug Dosing 81.93 mL/min Estimated GFR (MDRD) > 60 (>60) Glucose 92 (74-106) mg/dL Calcium 8.0 L (8.5-10.1) mg/dL Phenytoin 23.8 H (10.0-20.0) ug/mL Meds: Medications Discontinued Medications Generic Name Dose Route Start Last Admin Trade Name Freq PRN Reason Stop Dose Admin Gabapentin 600 mg 12/31/20 19:56 12/31/20 20:10 Gabapentin 300 Mg Cap PO 12/31/20 19:57 600 mg ONETIME ONE Administration - Re-Assessments/Exams Free Text/Narrative Re-Assessment/Exam: 12/31/20 20:49 Patient was given 600 mg of oral gabapentin, phenytoin level was checked and is just above therapeutic level at 23.4. No additional medicine needed. CBC and electrolytes are reassuring. I would continue with medication as prescribed, stay hydrated, activity as tolerated and return anytime if worsening or seizure activity recurs. Departure - Departure Time of Disposition: 21:13 Disposition: Home, Self-Care 01 Clinical Impression: Breakthrough seizure Contusion of face Qualifiers: Encounter type: initial encounter Qualified Code(s): S00.83XA - Contusion of other part of head, initial encounter - Discharge Information Instructions: Facial or Scalp Contusion, [id number], Seizure, Adult Referrals: PCP,None [Primary Care Provider] - Forms: ED Department Discharge Care Plan Goals: Continue your current medications, stay hydrated, and return anytime if seizure activity recurs or you develop other concerns. Sepsis Event Note (ED) - Evaluation Sepsis Screening Result: No Definite Risk - Focused Exam Vital Signs: Vital Signs Temp Pulse Resp BP Pulse Ox 12/31/20 20:42 64 119/67 97 12/31/20 19:52 66 123/70 97 12/31/20 19:34 97.3 F 66 16 129/71 94 L 12/31/20 19:27 97.3 F 16 129/71 94 L
[2020-12-31 20:53] VITALS: BP 119/67; PULSE 64
== END 2020-12-31 21:13 | disposition home or self-care (01) ==
LOC: JP.ED 19:22
DX: S00.83XA Contusion of other part of head, initial encounter (principal); G40.909 Epilepsy, unspecified, not intractable, without status epilepticus; Z88.0 Allergy status to penicillin; Z87.891 Personal history of nicotine dependence; W22.8XXA Striking against or struck by other objects, initial encounter
CPT/HCPCS: 36415; 80048; 80185; 85025; 99283; 99284; A9270

== ENCOUNTER 2023-06-29 06:55 | Emergency (ER) | payer MEDICARE ==
[2023-06-29 07:23] LABS: BASOPHILS ABSOLUTE AUTO 0.04 K/uL (0.00-0.10); BASOPHILS PERCENT AUTO 0.7 % (0.1-1.3); EOSINOPHILS ABSOLUTE AUTO 0.25 K/uL (0.00-0.40); EOSINOPHILS PERCENT AUTO 4.5 % (0.0-5.4); HEMATOCRIT 35.9 % (34.3-46.0); HEMOGLOBIN 12.2 g/dL (11.2-15.5); IMMATURE GRAN PERCENT AUTO 0.4 % (0.0-0.7); LYMPHOCYTES ABSOLUTE AUTO 1.93 K/uL (0.8-3.3); LYMPHOCYTES PERCENT AUTO 34.5 % (11.4-47.7); MEAN CORPUSCULAR HEMOGLOBIN 37.1 pg (31.6-35.5); MEAN CORPUSCULAR VOLUME 109.1 fL (81.4-99.0); MONOCYTES ABSOLUTE AUTO 0.74 K/uL (0.20-0.90); MONOCYTES PERCENT AUTO 13.2 % (3.3-12.6); NEUTROPHILS ABSOLUTE AUTO 2.62 K/uL (1.0-7.6); NEUTROPHILS PERCENT AUTO 46.7 % (40.0-78.1); PLATELET COUNT,PLT 182 K/uL (130-375); RED BLOOD CELL COUNT 3.29 M/uL (3.77-5.24); WHITE BLOOD CELL COUNT,WBC 5.6 K/uL (3.2-11.0)
[2023-06-29 07:25] LABS: IMMATURE GRAN ABSOLUTE AUTO 0.02 K/uL (0.00-0.23)
[2023-06-29 07:37] LABS: ANION GAP 11.5 mmol/L (5.0-14.0); CREATININE 0.6 mg/dL (0.6-1.0); EST CRCL DRUG DOSING (CG) 60.08 mL/min; POTASSIUM,K 3.5 mmol/L (3.6-5.2)
[2023-06-29] MEDS ORDERED: Iopamidol 755 Mg/ML 100 ML Bottle IV ONE (08:05)
[2023-06-29] MEDS ORDERED: Sodium Chloride 0.9% 75 ML IV SCH (08:15)
[2023-06-29] MEDS ORDERED: Sodium Chloride 0.9% 1,000 ML IV ONE (10:39)
[2023-06-29] MEDS ORDERED: Calcium Carbonate 500 MG Tab.Chew PO ONE (10:40)
[2023-06-29] MEDS ORDERED: Potassium Chloride 20 MEQ Tab.ER PO ONE (10:41)
[2023-06-29 11:00] LABS: APPEARANCE,URINE CLEAR (CLEAR); BILIRUBIN,URINE NEGATIVE (NEGATIVE); COLOR,URINE YELLOW (YELLOW); GLUCOSE,URINE NEGATIVE (NEGATIVE); KETONES,URINE NEGATIVE (NEGATIVE); LEUKOCYTE ESTERASE,URINE TRACE (NEGATIVE); NITRITE,URINE NEGATIVE (NEGATIVE); OCCULT BLOOD,URINE TRACE-INTACT (NEGATIVE); PROTEIN,URINE NEGATIVE (NEGATIVE); UROBILINOGEN,URINE 0.2 EU/dL (0.2-1.0)
[2023-06-29 11:09] LABS: AMORPHOUS SEDIMENT,URINE NOT SEEN; BACTERIA,URINE FEW; EPITHELIAL CELLS,URINE FEW; MUCUS,URINE RARE; RBC,URINE 0-5 (0-5)
[2023-06-29 13:20] VITALS: BP 113/56; PULSE 65
== END 2023-06-29 13:30 | disposition home or self-care (01) ==
LOC: JP.ED 06:55
DX: G45.9 Transient cerebral ischemic attack, unspecified (principal); Z88.0 Allergy status to penicillin; Z79.899 Other long term (current) drug therapy
CPT/HCPCS: 36415; 70450; 70496; 80048; 81001; 83605; 83735; 85025; 99284; 99285; A9270-GY; J3490; J7030; Q9967

== ENCOUNTER 2024-07-21 07:19 | Day surgery (SDC) | payer MEDICARE ==
[~2024-07-21 07:19] MED LIST: Propofol 200 MG/20 ML SDV ONE; fentaNYL 50 MCG/ML SDV ONE
[2024-07-21] MEDS: Lactated Ringers 1,000 ML IV SCH (08:07)
[2024-07-21 10:01] VITALS: PULSE 71
[2024-07-21 10:33] VITALS: BP 128/61
== END 2024-07-21 10:48 | disposition home or self-care (01) ==
LOC: JP.SDS 07:19
PROVIDERS: ATTEND Surgery
DX: Z12.11 Encounter for screening for malignant neoplasm of colon (principal); K51.40 Inflammatory polyps of colon without complications; K57.30 Diverticulosis of large intestine without perforation or abscess without bleeding
CPT/HCPCS: 45385; J2704; J3010; J7120; 00811-QZ; 88305